=== PATIENT | female | born 1950 | race African-American/Black ===

== ENCOUNTER → 2018-03-23 | Outpatient (CLI) | payer MEDICARE | LOC: M RAD 07:49 | DX: Z12.31 Encounter for screening mammogram for malignant neoplasm of breast (principal) | CPT/HCPCS: 77067 ==

== ENCOUNTER → 2018-04-06 | Outpatient (CLI) | payer MEDICARE | LOC: M RAD 13:48 | DX: R92.0 Mammographic microcalcification found on diagnostic imaging of breast (principal); N63.21 Unspecified lump in the left breast, upper outer quadrant | CPT/HCPCS: 77065 ==

== ENCOUNTER 2018-04-22 12:47 | Emergency (ER) | payer MEDICARE ==
[2018-04-22 13:40] LABS: BASO # 0.1 10^3/uL (0.0-0.2); BASO % 0.6 % (0.0-1.0); EOS # 0.1 10^3/uL (0.0-0.50); EOS % 1.1 % (0.0-3.0); HEMATOCRIT 38.9 % (36.0-47.0); HEMOGLOBIN 12.7 g/dl (12.0-15.5); IMMATURE GRANULOCYTE % 0.5 % (0-3.0); LYMPH # 4.2 10^3/uL (1.5-4.5); LYMPH % 36.7 % (24.0-44.0); MEAN CORPUSCULAR HEMOGLOBIN 30.5 pg (27.0-33.0); MEAN CORPUSCULAR HGB CONC 32.6 g/dl (32.0-36.5); MEAN CORPUSCULAR VOLUME 93.5 fl (80.0-96.0); MONO # 0.8 10^3/uL (0.0-0.8); MONO % 6.7 % (0.0-5.0); NEUTROPHILS # 6.2 10^3/uL (1.8-7.7); NEUTROPHILS % 54.4 % (36.0-66.0); PLATELET COUNT, AUTOMATED 309 10^3/uL (150-450); RED BLOOD COUNT 4.16 10^6/uL (4.00-5.40); RED CELL DISTRIBUTION WIDTH 12.9 % (11.5-14.5); WHITE BLOOD COUNT 11.5 10^3/uL (4.0-10.0)
[2018-04-22 13:51] LABS: ANION GAP 6 MEQ/L (8-16); BLOOD UREA NITROGEN 10 MG/DL (7-18); CALCIUM LEVEL 8.7 MG/DL (8.8-10.2); CARBON DIOXIDE LEVEL 27 MEQ/L (21-32); CHLORIDE LEVEL 108 MEQ/L (98-107); CK-MB VALUE MASS 1.4 NG/ML (<3.6); CPK CREATINE PHOSPHOKINASE 169 U/L (26-192); CREATININE FOR GFR 0.73 MG/DL (0.55-1.30); GLOMERULAR FILTRATION RATE > 60.0 (>45); GLUCOSE, FASTING 101 MG/DL (70-100); MB/CK RELATIVE INDEX 0.82 (< OR =4); SODIUM LEVEL 141 MEQ/L (136-145); TROPONIN I < 0.02 NG/ML (< 0.10)
[2018-04-22] MEDS: KETOROLAC 30 MG/ML VIAL (J1885) IV ×2 (14:41)
[2018-04-22] MEDS: NORCO, ANEXSIA 5/325MG TABLET (HYDROcodone/ACETAMINOPHEN) PO ×2 (15:55)
[2018-04-22 16:07] LABS: CK-MB VALUE MASS 1.5 NG/ML (<3.6); CPK CREATINE PHOSPHOKINASE 179 U/L (26-192); MB/CK RELATIVE INDEX 0.83 (< OR =4); TROPONIN I < 0.02 NG/ML (< 0.10)
== END 2018-04-22 16:22 | disposition home or self-care (01) ==
LOC: M ED 12:47
DX: R07.89 Other chest pain (principal); R92.8 Other abnormal and inconclusive findings on diagnostic imaging of breast; F17.210 Nicotine dependence, cigarettes, uncomplicated
CPT/HCPCS: J1885

== ENCOUNTER → 2018-04-26 | Outpatient (CLI) | payer MEDICARE ==
[~2018-04-26] MED LIST: LIDOCAINE 1% MDV 20ML VIAL As Ordered
== END ==
LOC: M RADPRO 10:33
DX: N60.12 Diffuse cystic mastopathy of left breast (principal); R92.0 Mammographic microcalcification found on diagnostic imaging of breast; Z98.1 Arthrodesis status; Z79.899 Other long term (current) drug therapy
CPT/HCPCS: 19081

== ENCOUNTER → 2018-06-09 | Outpatient (CLI) | payer MEDICARE | LOC: M WUC 13:23 | DX: M25.551 Pain in right hip (principal) | CPT/HCPCS: 72110 ==

== ENCOUNTER → 2018-07-16 | Outpatient (CLI) | payer MEDICARE ==
[2018-07-16 13:09] LABS: BLOOD UREA NITROGEN 11 MG/DL (7-18)
[2018-07-16 13:09] LABS: CREATININE FOR GFR 0.76 MG/DL (0.55-1.30); GLOMERULAR FILTRATION RATE > 60.0 (>45)
== END ==
LOC: M LAB 12:20
DX: M54.16 Radiculopathy, lumbar region (principal)
CPT/HCPCS: 82565

== ENCOUNTER → 2018-07-21 | Outpatient (CLI) | payer MEDICARE ==
[~2018-07-21] MED LIST changes: -LIDOCAINE 1% MDV 20ML VIAL As Ordered; +PROHANCE 279.3MG/ML 15ML VIAL (A9576) As Ordered; +PROHANCE 279.3MG/ML 5ML VIAL (A9576) As Ordered
== END ==
LOC: M RAD 09:24
DX: M51.06 Intervertebral disc disorders with myelopathy, lumbar region (principal); M96.1 Postlaminectomy syndrome, not elsewhere classified; M48.061 Spinal stenosis, lumbar region without neurogenic claudication; M79.1 Myalgia; M46.1 Sacroiliitis, not elsewhere classified; M47.817 Spondylosis without myelopathy or radiculopathy, lumbosacral region; M51.37 Other intervertebral disc degeneration, lumbosacral region
CPT/HCPCS: A9576

== ENCOUNTER → 2018-11-12 | Outpatient (CLI) | payer MEDICARE ==
[~2018-11-12] MED LIST changes: +IBUP-1022 PO; -PROHANCE 279.3MG/ML 15ML VIAL (A9576) As Ordered; -PROHANCE 279.3MG/ML 5ML VIAL (A9576) As Ordered
--- NOTE | 2018-11-12 14:24 | REP ---
MR THORACIC SPINE WITHOUT CONTRAST: HISTORY: Radiculopathy. A disc bulge is present at the T6-7 level. There is minimal effacement of the thecal sac without spinal cord compression. The T6 neural foramina are patent. A disc bulge is present at the T7-8 level. There is minimal effacement of the thecal sac without spinal cord compression. The T7 neural foramina are patent. A disc bulge is present at the T8-9 level. There is minimal effacement of the thecal sac without spinal cord compression. The T8 neural foramina are patent. A disc bulge is present at the T9-10 level. There is minimal effacement of the thecal sac without spinal cord compression. The T9 neural foramina are patent. A disc bulge is present at the T10-11 level. There is minimal effacement of the thecal sac without spinal cord compression. The T10 neural foramina are patent. There is no other disc bulge or herniation. The remaining neural foramina are patent. The spinal cord is normal in signal intensity. There is loss of height of several mid thoracic intervertebral discs. Increased signal intensity on T2-weighted images is present in the endplates of the T8 and T9 vertebral bodies. This represents degenerative change. IMPRESSION: Disc bulges at the T6-7 through T10-11 levels without spinal cord compression. Electronically Signed by Perry Acosta MD 11/12/2018 02:28 P
== END ==
LOC: M PLARAD 12:33
PROVIDERS: ATTEND Nurse Practitioner Family
DX: Z01.818 Encounter for other preprocedural examination (principal)